=== PATIENT | male | born 1965 | race Caucasian/White ===

== ENCOUNTER 2020-08-17 11:19 | Emergency (ER) | payer OTHER ==
--- NOTE | 2020-08-17 11:48 | EDM.PDOC ---
ED HPI GENERAL MEDICAL PROBLEM - General Chief Complaint: Abdominal Pain Stated Complaint: constipation 10 days after hip replacement Time Seen by Provider: 08/17/20 11:48 Source of Information: Reports: Patient, Old Records, RN, RN Notes Reviewed History Limitations: Reports: No Limitations - History of Present Illness INITIAL COMMENTS - FREE TEXT/NARRATIVE: Patient presents to ER with complaint of constipation. States he had a right hip replacement on August 07, states he took pain medications for a few days after the surgery, but has not used any since then. Patient states he has not had a bowel movement since before his hip surgery. States he was seen in the clinic yesterday and did have an x-ray of the abdomen which was found that he had a large volume of stool throughout the colon. Patient states he has been having gurgling in the stomach, and minimal pain, pressure. Patient states he has had small amounts of hard stool, but very little over the past 10 days. Onset: Gradual - Related Data Allergies Allergy/AdvReac Type Severity Reaction Status Date / Time No Known Allergies Allergy Verified 08/17/20 11:37 Home Meds: Home Meds Aspirin 325 mg PO 08/17/20 [History] Losartan/Hydrochlorothiazide [Losartan-HCTZ 100-25 MG] 08/17/20 [History] Ozempic 08/17/20 [History] Tamsulosin HCl 08/17/20 [History] atorvaSTATin [Lipitor] 08/17/20 [History] metFORMIN HCl [Metformin HCl] 1,000 mg PO 08/17/20 [History] ED ROS GENERAL - Review of Systems Review Of Systems: Comprehensive ROS is negative, except as noted in HPI. ED EXAM, GI/ABD - Physical Exam Exam: See Below Exam Limited By: No Limitations General Appearance: Alert, WD/WN, No Apparent Distress Eyes: Bilateral: Normal Appearance, EOMI Ears: Normal External Exam, Hearing Grossly Normal Nose: Normal Inspection Throat/Mouth: Normal Inspection, Normal Voice, No Airway Compromise Head: Atraumatic, Normocephalic Neck: Normal Inspection, Supple, Non-Tender, Full Range of Motion Respiratory/Chest: No Respiratory Distress, Lungs Clear, Normal Breath Sounds, No Accessory Muscle Use, Chest Non-Tender Cardiovascular: Normal Peripheral Pulses, Regular Rate, Rhythm, No Edema, No Gallop, No JVD, No Rub, Systolic Murmur GI/Abdominal Exam: Normal Bowel Sounds, Soft, Non-Tender, No Organomegaly, No Distention, No Abnormal Bruit, No Mass, Pelvis Stable (Male) Exam: Deferred Rectal (Males) Exam: Deferred Back Exam: Normal Inspection, Full Range of Motion, NT Extremities: Normal Inspection, Normal Range of Motion, Non-Tender, Normal Capillary Refill, No Pedal Edema Neurological: Alert, Oriented, CN II-XII Intact, Normal Cognition, Normal Gait, Normal Reflexes, No Motor/Sensory Deficits Psychiatric: Normal Affect, Normal Mood Skin Exam: Warm, Dry, Intact, Normal Color, No Rash Lymphatic: No Adenopathy Course - Vital Signs Last Recorded V/S: Last Vital Signs Temp 97.4 F 08/17/20 11:52 Pulse 88 08/17/20 11:52 Resp 14 08/17/20 11:52 BP 132/77 08/17/20 11:52 Pulse Ox 100 08/17/20 11:52 - Orders/Labs/Meds Orders: Active Orders 24 hr Category Date Time Status Enema [RC] ASDIRECTED Care 08/17/20 11:53 Active - Radiology Interpretation Free Text/Narrative:: Abdominal x-ray, completed 08/16/2020 at [facility]: No free air under the hemidiaphragms on the upright image. Air-fluid levels centrally in the abdomen. Large volume stool noted throughout the colon with peripheral gas surrounding its margin associated with the left colon starting at the splenic flexure. Gas and stool is present in the rectum. Limited assessment for radiodense renal calculi but none seen. 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 Right hip arthroplasty incompletely seen. Some punctate calcifications in the periphery of the pelvis likely vascular but bladder dependent stones possible. Soft tissue tracie also incompletely seen near the right hip. See radiologist report - Re-Assessments/Exams Free Text/Narrative Re-Assessment/Exam: 08/17/20 11:57 Patient to go to the medical floor for soapsuds enema until clear. Departure - Departure Time of Disposition: 14:50 Disposition: Home, Self-Care 01 Condition: Good Clinical Impression: Constipation Qualifiers: Constipation type: unspecified constipation type Qualified Code(s): K59.00 - Constipation, unspecified - Discharge Information *PRESCRIPTION DRUG MONITORING PROGRAM REVIEWED*: No *COPY OF PRESCRIPTION DRUG MONITORING REPORT IN PATIENT VIRAJ: No Instructions: Constipation, Adult, [id number] Forms: ED Department Discharge Additional Instructions: Begin taking a stool softener as directed Drink plenty of water Follow-up with your primary care provider Sepsis Event Note (ED) - Focused Exam Vital Signs: Vital Signs Temp Pulse Resp BP Pulse Ox 08/17/20 11:52 97.4 F 88 14 132/77 100 - My Orders Last 24 Hours: My Active Orders 08/17/20 11:53 Enema [RC] ASDIRECTED - Assessment/Plan Last 24 Hours: My Active Orders 08/17/20 11:53 Enema [RC] ASDIRECTED
== END 2020-08-17 15:00 | disposition home or self-care (01) ==
LOC: DL.ED 11:19
DX: K59.00 Constipation, unspecified (principal)
CPT/HCPCS: 99282; 99283